=== PATIENT | female | born 1990 | race Caucasian/White ===

== ENCOUNTER 2017-06-09 16:56 | Emergency (ER) | payer OTHER ==
[~2017-06-09] VITALS: Ht 162.6 cm; Wt 73.0 kg
[~2017-06-09 16:56] MED LIST: BACTDS PO; HYDR-3498 PO; IBUP-1542 PO
[2017-06-09 17:01] VITALS: Ht 162.6 cm; Wt 73.0 kg
[2017-06-09] MEDS ORDERED: ACETAMINOPHEN 325 MG TAB PO STA (17:45)
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
[2017-06-09 18:21] LABS: BASOPHILS % 0.3 % (0.0-2.0); EOSINOPHILS % 0.4 % (0.0-7.0); HEMOGLOBIN 13.8 g/dl (12.0-16.0); LYMPHOCYTES # 2.3 10^3/ul (0.8-2.9); LYMPHOCYTES % 20.8 % (15.0-51.0); MEAN CORPUSCULAR HEMOGLOBIN 30.8 pg (29.0-33.0); MEAN CORPUSCULAR HGB CONC 36.3 g/dl (32.0-37.0); MEAN CORPUSCULAR VOLUME 84.8 fl (82.0-101.0); MEAN PLATELET VOLUME 9.7 fl (7.4-10.4); MONOCYTE # 0.5 10^3/ul (0.3-0.9); MONOCYTES % 4.6 % (0.0-11.0); NEUTROPHIL # 8.3 10^3/ul (1.6-7.5); NEUTROPHILS % 73.6 % (39.0-77.0); PLATELET COUNT 287 10^3/UL (140-415); RED BLOOD COUNT 4.48 10^6/ul (4.20-5.40); RED CELL DISTRIBUTION WIDTH 13.1 % (11.5-14.5); WHITE BLOOD COUNT 11.2 10^3/ul (4.8-10.8)
[2017-06-09 18:27] LABS: ADD UMIC YES; UR ASCORBIC ACID NEGATIVE (NEGATIVE); UR BACTERIA FEW /HPF (NONE SEEN); UR BILIRUBIN (Dip) NEGATIVE (NEGATIVE); UR BLOOD (Dip) NEGATIVE (NEGATIVE); UR CLARITY SLIGHTLY CLOUDY (CLEAR); UR COLOR YELLOW (YELLOW); UR GLUCOSE (Dip) NEGATIVE (NEGATIVE); UR KETONES (Dip) TRACE mg/dL (NEGATIVE); UR LEUKOCYTE ESTERASE (Dip) 1+ Leu/ul (NEGATIVE); UR MUCUS MODERATE /HPF (NONE SEEN); UR NITRITE (Dip) POSITIVE (NEGATIVE); UR RBC 3 /HPF (0-5); UR SPECIFIC GRAVITY (Dip) 1.029 (1.003-1.030); UR SQUAMOUS EPITHELIAL CELL FEW /HPF (FEW); UR TOTAL PROTEIN (Dip) NEGATIVE (NEGATIVE); UR UROBILINOGEN (Dip) NEGATIVE (NEGATIVE)
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
[2017-06-09] MEDS ORDERED: NITR-58 PO (20:04)
[2017-06-09 20:10] VITALS: BP 116/67; PULSE 81; RESP 20; TEMP 98.1
== END 2017-06-09 20:11 | disposition home or self-care (01) ==
LOC: FTE 16:56
DX: O23.42 Unspecified infection of urinary tract in pregnancy, second trimester (principal); Z3A.14 14 weeks gestation of pregnancy
CPT/HCPCS: 36415; 76801; 81001; 84702; 85025; Z7502; Z7610

== ENCOUNTER 2017-09-05 21:20 | Emergency (ER) | payer MEDICAID, OTHER ==
[~2017-09-05] VITALS: Ht 162.6 cm; Wt 79.0 kg
[~2017-09-05 21:20] MED LIST changes: +NITR-58 PO
[2017-09-05 21:22] VITALS: Ht 162.6 cm; Wt 79.0 kg
--- NOTE | 2017-09-06 00:25 | ERD ---
ER Documentation Chief Complaint Chief Complaint BIB SELF, CC: COUGH AND LEFT EAR PAIN X 2 DAYS HPI this 24 week femal reports coughing and fever . has appointment with MD in 2 days ROS All systems reviewed and are negative except as per history of present illness. Allergies Allergies: Coded Allergies: Penicillins (Verified Allergy, Unknown, 09/05/17) PMhx/Soc Medical and Surgical Hx: pt denies Medical Hx, pt denies Surgical Hx History of Surgery: No Anesthesia Reaction: No Hx Neurological Disorder: No Hx Respiratory Disorders: No Hx Cardiac Disorders: No Hx Psychiatric Problems: No Hx Miscellaneous Medical Probl: No Hx Alcohol Use: No Hx Substance Use: No Hx Tobacco Use: No Smoking Status: Never smoker Physical Exam Vitals Vital Signs Date Time Temp Pulse Resp B/P Pulse Ox O2 Delivery O2 Flow Rate FiO2 09/05/17 21:22 97.1 85 18 123/60 100 Physical Exam Const: Nourished well-appearing well-hydrated 27-year-old female no acute distress Head: Eyes: ENT: Neck: . Resp: Rises and falls symmetrically clear to auscultation bilaterally, no rales wheezes or rhonchi, no egophony Cardio: S1-S2, no S3-S4 regular rate and rhythm, no murmurs Abd: 's abdomen Skin: Back: Ext: Neur: Awake and alert Psych: Normal Mood and Affect Procedures/MDM This 27-year-old female presents to emergency department for a 2 day history of cough and left-sided otalgia. Patient is 24 weeks , denies any vaginal discharge, abdominal cramping or vaginal bleeding. Patient reports she has a appointment to see her physician in 2 days but came to emergency department today because she felt feverish earlier, patient's temperature is normal in exam room, emergency room course includes history and physical exam unremarkable for evidence of pneumonia, patient will be discharged home with Robitussin cough syrup, instructed to keep appointment with primary physician, return to emergency department for worsening of symptoms, shortness of breath, vaginal bleeding, Patient is stable with no new complaints during ER course, clinically there is no current evidence to suggest meningitis, sepsis, acute abdomen, threatened miscarriage pulmonary embolism or any other emergent condition appearing to require further evaluation or hospitalization. I feel the patient is stable for discharge at this time. I have discussed results, examination findings, the treatment plan with the patient and family present prior to discharge. Indications for emergent reevaluation, side effects of medication were also discussed. All questions were answered. Patient verbalizes understanding and agrees with plan of care. Departure Diagnosis: Primary Impression: URI (upper respiratory infection) URI type: unspecified viral URI Qualified Code: J06.9 - Viral upper respiratory tract infection Condition: Good Patient Instructions: Adult Self-Care for Colds Additional Instructions: Thank you for for coming to [facility] or your care today. Please ask your nurse or provider if you have questions about your care today and do not leave until all your questions have been answered. Please use any medications given as directed and follow-up with your doctor (or the doctor you were referred to) in the next 2-3 days. If you do not have a primary care doctor you may follow up at the [facility] (listed below). You may also use motrin and tylenol as needed for fever and/or pain unless instructed otherwise by your provider or nurse. Indications for more urgent follow-up have been discussed, but you may return to the Emergency Department at ANY time for any worrisome or worsening symptoms. If you have abdominal pain, please know that no test or exam you received is perfect and you should follow up within 8 hours for continued pain. If you had any imaging studies today, such as an X-Ray or CT Scan, these studies will be reviewed later by a radiologist. You will be called if there are important findings that were not identified today, so make sure the contact information you provided at registration is correct. If you received any narcotic pain control medicine today, such as Vicodin, Morphine or Dilaudid, your coordination and judgment may be affected for a number of hours. Please do not drive or operate heavy machinery, and you may want someone to assist you at home. If you were given a prescription for narcotic medication, be aware that it is very addictive- use sparingly and only if necessary. GILBERTO PAYNE Sep 06, 2017 00:25
[2017-09-06] MEDS ORDERED: GUAI-637 PO (01:26)
[2017-09-06 02:10] VITALS: BP 118/58; PULSE 77; RESP 20
== END 2017-09-06 02:11 | disposition home or self-care (01) ==
LOC: FTE 21:20 → MERGE 21:20 → FTE 09-06 02:11
DX: O99.513 Diseases of the respiratory system complicating pregnancy, third trimester (principal); J06.9 Acute upper respiratory infection, unspecified; Z3A.24 24 weeks gestation of pregnancy
CPT/HCPCS: 99283

== ENCOUNTER 2017-09-08 01:30 | Inpatient (IN) | payer OTHER ==
[~2017-09-08] VITALS: Ht 162.6 cm; Wt 80.2 kg
[~2017-09-08 01:30] MED LIST changes: +GUAI-637 PO
[2017-09-08 02:06] VITALS: BP 111/69; PULSE 71; RESP 18
[2017-09-08] MEDS ORDERED: PREN-19 PO (02:10)
[2017-09-08 02:46] LABS: BASOPHILS % 0.1 % (0.0-2.0); EOSINOPHILS # 0.1 10^3/ul (0.0-0.5); EOSINOPHILS % 0.8 % (0.0-7.0); HEMATOCRIT 32.4 % (37.0-47.0); HEMOGLOBIN 10.4 g/dl (12.0-16.0); LYMPHOCYTES # 1.8 10^3/ul (0.8-2.9); LYMPHOCYTES % 15.5 % (15.0-51.0); MEAN CORPUSCULAR HGB CONC 32.1 g/dl (32.0-37.0); MEAN CORPUSCULAR VOLUME 87.1 fl (82.0-101.0); MEAN PLATELET VOLUME 9.7 fl (7.4-10.4); MONOCYTE # 0.8 10^3/ul (0.3-0.9); MONOCYTES % 6.7 % (0.0-11.0); NEUTROPHIL # 8.8 10^3/ul (1.6-7.5); NEUTROPHILS % 76.5 % (39.0-77.0); PLATELET COUNT 266 10^3/UL (140-415); RED BLOOD COUNT 3.72 10^6/ul (4.20-5.40); RED CELL DISTRIBUTION WIDTH 13.2 % (11.5-14.5); WHITE BLOOD COUNT 11.5 10^3/ul (4.8-10.8)
[2017-09-08 02:55] LABS: ADD UMIC YES; UR AMORPHOUS CRYSTAL MODERATE /HPF (NONE SEEN); UR ASCORBIC ACID NEGATIVE (NEGATIVE); UR BACTERIA MANY /HPF (NONE SEEN); UR BILIRUBIN (Dip) NEGATIVE (NEGATIVE); UR BLOOD (Dip) 1+ mg/dL (NEGATIVE); UR CLARITY CLOUDY (CLEAR); UR COLOR YELLOW (YELLOW); UR GLUCOSE (Dip) 1+ mg/dL (NEGATIVE); UR KETONES (Dip) NEGATIVE (NEGATIVE); UR LEUKOCYTE ESTERASE (Dip) 3+ Leu/ul (NEGATIVE); UR MUCUS FEW /HPF (NONE SEEN); UR NITRITE (Dip) POSITIVE (NEGATIVE); UR RBC 0 /HPF (0-5); UR SPECIFIC GRAVITY (Dip) 1.014 (1.003-1.030); UR SQUAMOUS EPITHELIAL CELL FEW /HPF (FEW); UR TOTAL PROTEIN (Dip) 1+ mg/dl (NEGATIVE); UR UROBILINOGEN (Dip) NEGATIVE (NEGATIVE)
--- NOTE | 2017-09-08 02:57 | RADRPT ---
PROCEDURE: ULTRASOUND LIMITED ABDOMEN CLINICAL INDICATION: 27-year-old female with abdominal pain. TECHNIQUE: Multiple sonographic of the right upper quadrant of the abdomen were obtained. The imag es were reviewed on a PACS workstation. COMPARISON: None. FINDINGS: The pancreas is not well visualized secondary to overlying bowel gas. The liver displays normal echogenicity. The liver measures 17.9 cm in length. No evidence of intrah epatic biliary ductal dilatation is seen. The portal and hepatic veins are unremarkable. The gallbladder demonstrates no wall thickening, sludge, nor stones. No pericholecystic fluid is see n. The common bile duct measures 3.3 mm and is not dilated. The right kidney displays normal echogenicity. The right kidney measures 11.2 cm in maximal length. There is mild right-sided hydronephrosis. No free fluid is seen. IMPRESSION: Mild right-sided hydronephrosis .French Lynne MD, MD Date Time Electronically viewed and signed by .French Lynne MD, on 09/08/2017 02:57 .M/
--- NOTE | 2017-09-08 02:58 | RADRPT ---
PROCEDURE: ULTRASOUND BIOPHYSICAL PROFILE CLINICAL INDICATION: 27-year-old female in labor for viability. TECHNIQUE: Multiple sonographic images were obtained in order to perform a biophysical profile The images were reviewed on a PACS workstation. COMPARISON: None. FINDINGS: The cervix appears closed with a length of 4.1 cm measured transvaginally. There is a single viable intrauterine gestation. There is a breech presentation. Cardiac activity is present at 139 beats pe r minute. The placenta is anterior. The results of the biophysical profile are as follows: breathing movement = 2/2 Gross body movement = 2/2 tone = 2/2 Qualitative amniotic fluid volume = 2/2 Amniotic fluid index equals 13.4 cm. This yields a biophysical profile score of 8/8. IMPRESSION: Biophysical profile score is 8/8. .French Lynne MD, Date Time Electronically viewed and signed by .French Lynne MD, on 09/08/2017 02:58 .M/
--- NOTE | 2017-09-08 03:01 | RADRPT ---
PROCEDURE: ULTRASOUND OBSTETRICAL CLINICAL INDICATION: 27-year-old female in labor for size and date determination. TECHNIQUE: Multiple sonographic images of the pelvis were obtained. The images were reviewed on a PACS workstation. COMPARISON: Ultrasound biophysical profile obtained concurrently. FINDINGS: There is a single viable intrauterine gestation. Cardiac activity is present with 141 beats per min tory. There is a breech presentation. Measurements were made in order to determine age. The res ults are as follows: BPD = 6.77 cm, HC = 24.85 cm, AC = 23.75 cm, FL = 5.01 cm. This yields and estimated gestational ag e of approximately 27 weeks 2 days. The estimated date of delivery is December 06, 2017. The EFW = 1086 +/- 163 g (2 lb 6 oz). The GP is 59%. The placenta is anterior. There is no evidence for an abruption or placenta previa. IMPRESSION: 1. Single viable intrauterine gestation of approximately 27 weeks 2 days. The estimated date of de livery is December 16, 2017. 2. The estimated weight is 1086 +/- 163 g (2 lb 6 oz). The GP is 59%. .French Lynne MD, Date Time Electronically viewed and signed by .French Lynne MD, MD on 09/08/2017 03:01 .[place]an
[2017-09-08 03:04] LABS: ALBUMIN 3.6 g/dl (3.3-4.9); ALBUMIN/GLOBULIN RATIO 1.12; BILIRUBIN,INDIRECT 0.1 mg/dl (0-1.1); BILIRUBIN,TOTAL 0.1 mg/dl (0.2-1.3); CALCIUM 8.6 mg/dl (8.4-10.2); CREATININE 0.57 mg/dl (0.44-1.00); TOTAL PROTEIN 6.8 g/dl (6.1-8.1)
[2017-09-08] MEDS ORDERED: SOD CHLORIDE 0.9% 1,000 ML IV ONE (03:30)
[2017-09-08] MEDS ORDERED: AL HYDROX/MG HYDROX/SIMETH 30 ML CUP PO PRN (03:30)
--- NOTE | 2017-09-08 03:35 | HP ---
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 Blood Type: Unknown Rubella: unknown RPR/VDRL: Unknown GBS Status: Unknown HBsAG: Unknown OB Admission Exam Vital Signs Vital Signs Vital Signs Date Time Temp Pulse Resp B/P Pulse Ox O2 Delivery O2 Flow Rate FiO2 09/08/17 02:06 97.8 71 18 111/69 Room Air Physical Exam HEENT: WNL Heart: Rhythm Normal Lungs: Clear, Equal Abdomen: WNL Extremities: Normal Reflexes: Normal Cervical Dilatation: other Effacement: Other Station: Other Membranes: Intact Amniotic Fluid: Unevaluable Heart Rate: 120's Accelerations: Accelerations Present Decelerations: No Decelerations Varibility: Moderate Last 72 hours Lab Results CBC & BMP 09/08/17 02:35 Liver Function Test 09/08/17 02:35 Alanine Aminotransferase (ALT/SGPT) 24 Albumin 3.6 Alkaline Phosphatase 114 Aspartate Amino Transf (AST/SGOT) 12 L Direct Bilirubin 0.00 Total Protein 6.8 OB Assessment/Plan Other 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
[2017-09-08] MEDS ORDERED: GUAIFENESIN 20 MG/ML 5ML CUP PO PRN (04:00)
[2017-09-08] MEDS ORDERED: ONDANSETRON 4 MG INJ IV PRN (04:00)
--- NOTE | 2017-09-08 04:00 | TRIAGE ---
OB Triage Datetime Report Generated by CPN: 09/08/2017 03:59 Datetime: 09/08/2017 02:15 Stage of : OB Triage Datetime: 09/08/2017 02:02 Stage of : OB Triage Monitor Mode: External Pattern: Normal: <= 5 Contractions in 10 Minutes Resting Tone [place]: Relaxed Heart Rate FHR Baseline Rate: 130 Monitor Mode: External US Comments: Baby audibly very active and difficult to monitor Datetime: 09/08/2017 01:45 Time of Arrival: 09/08/2017 01:25 EGA: 27.0 Arrived By: Wheelchair Arrived From: Home Chief Complaint: hx c/s x1 c/o Movement: Present Contractions: Regular Time Contractions Began: 09/07/2017 09:00 Contractions: Q5 Rupture of Membranes: Denies Vaginal Bleeding: None Vaginal Discharge: Denies Recent Sexual Intercouse: Denies Abdominal Trauma: Not Applicable Patient Complaints: Contractions Additional Patient Complaints: Pt states she was seen inER 2 days ago for cough/flu and sent home with ibuprofen Time Provider Notified: 09/08/2017 02:15 Provider Notified: Dr Obrien Initial Plan: EFM,CBC,CMP,UA,AMYLASE,LIPASE,CVL,BPP,EFW,LIMITED ABD Datetime: 09/08/2017 01:39 Stage of : OB Triage Maternal Assessment Level of Consciousness: Fully Conscious Headache: Denies Blurred Vision: No Respiratory Effort: Unlabored Nausea/Vomiting: Denies RUQ Epigastric Pain: Denies Facial Edema: None Labor Evaluation Frequency: placed Monitor Mode: External Resting Tone [place]: Relaxed Heart Rate FHR Baseline Rate: 130 Monitor Mode: External US Pain Assessment Pain Scale: 10 Pain Presence: Intermittent Pain Type: Cramping; Pressure Pain Location: Abdomen; Perineum
[2017-09-08] MEDS: ACETAMINOPHEN 1000MG/100ML IV 100 ML IVPB PRN ×2 (04:40→13:50)
[2017-09-08] MEDS: CEFTRIAXONE 1 GM/50 ML (PMX) 50 ML IVPB SCH (05:03)
[2017-09-08] MEDS: SOD CHLORIDE 0.9% 1,000 ML IV SCH ×2 (05:27→13:24)
[2017-09-08] MEDS: FERROUS SULFATE (EC) 325 MG TAB PO SCH (09:46)
[2017-09-08] MEDS: PRENATAL VITAMIN PO SCH (09:46)
[2017-09-09] MEDS: SOD CHLORIDE 0.9% 1,000 ML IV SCH ×3 (01:10→14:44)
[2017-09-09] MEDS: CEFTRIAXONE 1 GM/50 ML (PMX) 50 ML IVPB SCH (05:11)
--- NOTE | 2017-09-09 08:17 | RADRPT ---
PROCEDURE: CERVICAL LENGTH ULTRASOUND CLINICAL INDICATION: Contractions at 27 weeks gestational age. TECHNIQUE: Trans-vaginal imaging of the cervical canal was performed utilizing teague-scale imaging. Sagittal and transverse images were obtained. Trans-abdominal images were also obtained. The viviane ges were reviewed on a PACS workstation. COMPARISON: None. FINDINGS: There is a single live intrauterine . heart rate is 137 beats per minute. Position is transverse with head to maternal right and placenta is fundal grade 1. There is no place nta previa. The cervix is closed with a length of 3.6 cm. IMPRESSION: 1. Cervical length is 3.6 cm. RPTAT: QQ .Javan Adrian MD, Date Time Electronically viewed and signed by .Javan Adrian MD, on 09/09/2017 08:16 .R/
[2017-09-09] MEDS: PRENATAL VITAMIN PO SCH (09:11)
[2017-09-09] MEDS: FERROUS SULFATE (EC) 325 MG TAB PO SCH (09:11)
[2017-09-09 14:16] LABS: BASOPHILS % 0.3 % (0.0-2.0); EOSINOPHILS # 0.1 10^3/ul (0.0-0.5); EOSINOPHILS % 0.7 % (0.0-7.0); HEMATOCRIT 30.5 % (37.0-47.0); LYMPHOCYTES # 1.7 10^3/ul (0.8-2.9); LYMPHOCYTES % 19.4 % (15.0-51.0); MEAN CORPUSCULAR HEMOGLOBIN 28.7 pg (29.0-33.0); MEAN CORPUSCULAR HGB CONC 32.8 g/dl (32.0-37.0); MEAN CORPUSCULAR VOLUME 87.6 fl (82.0-101.0); MONOCYTE # 0.6 10^3/ul (0.3-0.9); MONOCYTES % 6.2 % (0.0-11.0); NEUTROPHIL # 6.5 10^3/ul (1.6-7.5); NEUTROPHILS % 73.2 % (39.0-77.0); PLATELET COUNT 276 10^3/UL (140-415); RED BLOOD COUNT 3.48 10^6/ul (4.20-5.40); RED CELL DISTRIBUTION WIDTH 13.4 % (11.5-14.5); WHITE BLOOD COUNT 8.9 10^3/ul (4.8-10.8)
[2017-09-09] MEDS: ACETAMINOPHEN 1000MG/100ML IV 100 ML IVPB PRN (14:30)
--- NOTE | 2017-09-09 17:09 | PN ---
Date/Time of Note Date/Time of Note DATE: 09/09/17 TIME: 17:06 OB Subjective Subjective Subjective NO major complaints OB Objective Objective Objective VSS P/E: Normal no CVA tenderness OB Assessment/Plan Other Assessment: 26 weeks gestation pyelonephritis resolved Other plan: will D/C home OCTAVIO OSBORNE MD Sep 09, 2017 17:09
--- NOTE | 2017-09-09 17:11 | DS ---
Date/Time of Note Date/Time of Note DATE: 09/09/17 TIME: 17:09 Obstetrical Discharge Record Final Diagnosis Final Diagnosis: not delivered Other Final Diagnosis pyelonephritis at 26 weeks: resolved Complications Infection (pyelonephritis ) Condition on Discharge Physical Assessment Voiding: Yes Bowel Movement: Yes Breast: Soft, non-tender, Filling Fundus: Other ( ) Abdomen and Incision: gravid Episiotomy: NA Calf Tenderness: No Patient Condition: Good OCTAVIO OSBORNE MD Sep 09, 2017 17:10
--- NOTE | 2017-09-09 17:12 | PD.PPDC ---
[employer] Discharge Instruction Provider Information Physician Information 27 y/o female with pyelonephritis at 26 weeks Diagnosis Final Diagnosis: S/P puelonephritis Condition Patient Condition: Good Diet Diet: Resume Regular Diet Activity/Restrictions Activity: May Shower Follow-up Follow-up with Physician: 3, 4, Day/Days Return to clinic for Comment: refer back to ON triage for the same symptoms OCTAVIO OSBORNE MD Sep 09, 2017 17:12
== END 2017-09-09 18:02 | disposition home or self-care (01) | DRG 781 ==
LOC: OBT 01:30 → L-D 01:30 → OBG 03:20 → OBT 03:20
PROVIDERS: ADMIT Obstetrics & Gynecology; ATTEND Obstetrics & Gynecology
DX: O23.02 Infections of kidney in pregnancy, second trimester (principal); Z3A.27 27 weeks gestation of pregnancy
CPT/HCPCS: 76705; 76815; 76817; 76818; 80053; 81001; 82150; 83690; 85025; 87086; G0463; J0131; J0696; J7030

== ENCOUNTER 2017-10-03 09:22 | Emergency (ER) | payer OTHER ==
[~2017-10-03] VITALS: Wt 81.0 kg
[~2017-10-03 09:22] MED LIST changes: -BACTDS PO; -HYDR-3498 PO; -NITR-58 PO; +PREN-19 PO
[2017-10-03] MEDS ORDERED: OSLT75C PO (10:51)
[2017-10-03] MEDS ORDERED: ACET650S9 PR (10:51)
[2017-10-03] MEDS ORDERED: ALBU18HF INHALATION (10:51)
--- NOTE | 2017-10-03 11:00 | ERD ---
ER Documentation Chief Complaint Chief Complaint COUGH, SOB, HX OF BRONCHITIS, PT 31 WKS PG, NO CRAMPING, NO BLEEDING HPI 27-year-old female who is approximately 31 weeks , presents to the emergency department for complaints of cough and congestion since this morning. Patient states she was diagnosed with bronchitis 1 year ago and has an albuterol inhaler but was unsure if she is able to use it for her symptoms. 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 She denies fever, chills, headache, nausea , vomiting, abdominal pain or diarrhea. She denies any vaginal bleeding or discharge. She denies pelvic cramping. ROS All systems reviewed and are negative except as per history of present illness. Medications Home Meds Active Scripts Oseltamivir Phosphate* (Tamiflu*) 75 Mg Capsule, 75 MG PO BID for 5 Days, CAP Prov:DANAE BRINK PA-C 10/03/17 Acetaminophen* (Acephen*) 650 Mg Supp.rect, 650 MG [place] Q4H Y for PAIN AND OR ELEVATED TEMP for 5 Days, SUPP.RECT Prov:DANAE BRINK PA-C 10/03/17 Albuterol Sulfate* (Ventolin HFA*) 18 Gm Hfa.aer.ad, 2 PUFF INHALATION Q4H, #1 INHALER Prov:DANAE BRINK PA-C 10/03/17 Guaifenesin* (Robitussin*) 100 Mg/5 Ml Syrup, 100 MG PO Q4H Y for COUGH for 3 Days, #100 ML Prov:GILBERTO PAYNE 09/06/17 Ibuprofen* (Motrin*) 600 Mg Tab, 600 MG PO Q6H Y for PAIN AND OR ELEVATED TEMP, #30 TAB Prov:RICCI DIAZ NP 06/07/16 Reported Medications Vit #76/Iron,Carb/FA (Prenatabs Rx Tablet) 1 Each Tablet, 1 EACH PO DAILY, TAB 09/08/17 Allergies Allergies: Coded Allergies: Penicillins (Verified Allergy, Intermediate, 09/09/17) PMhx/Soc Medical and Surgical Hx: pt denies Medical Hx History of Surgery: Yes () Anesthesia Reaction: No Hx Neurological Disorder: No Hx Respiratory Disorders: Yes (bronchitis) Hx Cardiac Disorders: No Hx Psychiatric Problems: No Hx Miscellaneous Medical Probl: No Hx Alcohol Use: No Hx Substance Use: No Hx Tobacco Use: No Smoking Status: Never smoker Physical Exam Vitals Vital Signs Date Time Temp Pulse Resp B/P Pulse Ox O2 Delivery O2 Flow Rate FiO2 10/03/17 09:25 97.5 103 18 120/74 100 Physical Exam Const: Well-developed, well-nourished, in no acute distress Head: Atraumatic Eyes: Normal Conjunctiva ENT: Normal External Ears, Nose and Mouth.Posterior pharynx without swelling or erythema. Neck: Full range of motion..~ No meningismus. Resp: Mild inspiratory wheezing at the right upper lobe. No crackles or rhonchi. Cardio: Regular rate and rhythm, no murmurs Abd: Soft, non tender, non distended. Normal bowel sounds Skin: No petechiae or rashes Back: No midline or flank tenderness Ext: No cyanosis, or edema Neur: Awake and alert Psych: Normal Mood and Affect Procedures/MDM This is a 27-year-old otherwise healthy female who is a approximately 31 weeks who presents with cough and congestion since this morning. Patient states her symptoms are exacerbated while working outside in the smoke. She notes a history of bronchitis for which she was prescribed albuterol. Vital signs within normal limits upon arrival. Patient without evidence of respiratory distress and is moving air well. Physical exam with evidence of mild right upper lung wheezing. The patient's clinical presentation is consistent with cough and congestion likely the result of an acute viral syndrome versus respiratory irritant. The patient does not exhibit any clinical signs or symptoms concerning for serious bacterial infection or systemic illness. Based on history and clinical exam findings the patient does not appear to have evidence of pneumonia, strep pharyngitis, urinary tract infection, bacteremia, sepsis, or meningitis. Patient denied abdominal pain, cramping or vaginal bleeding. For these reasons I do not believe it is necessary to obtain laboratory testing or diagnostic imaging. I believe it would be appropriate for symptom control, and close outpatient primary care follow-up. I have recommended a humidifier, Tylenol, and albuterol inhaler. We will also be prescribing Tamiflu patient is higher risk and presents with flulike symptoms which began this morning. I discouraged the patient on taking cough suppressant medication due to its effects during . Based on patient's history of present illness and physical examination the decision was made to discharge. The patient was re-evaluated after ED treatment and stabilizing measures, and symptoms have improved. There is no evidence of life threatening injuries or illnesses at this time. Patient agrees with plan. On re-examination, patient resting in no distress, stable vital signs, reports feeling better and safe for discharge with outpatient follow up with PMD in 1-2 days. Patient given return precautions. Departure Diagnosis: Primary Impression: URI (upper respiratory infection) URI type: unspecified viral URI Qualified Code: J06.9 - Viral upper respiratory tract infection Additional Impressions: Cough Wheezing Condition: Good Patient Instructions: Uri, Viral W/ Wheezing (Adult) Additional Instructions: Call your primary care doctor TOMORROW for an appointment during the next 1-2 days.See the doctor sooner or return here if your condition worsens before your appointment time. DANAE BRINK PA-C Oct 03, 2017 11:00
== END 2017-10-03 11:02 | disposition home or self-care (01) ==
LOC: FTE 09:22
DX: O99.511 Diseases of the respiratory system complicating pregnancy, first trimester (principal); J06.9 Acute upper respiratory infection, unspecified; Z3A.31 31 weeks gestation of pregnancy
CPT/HCPCS: 99284

== ENCOUNTER 2017-10-23 19:00 | Emergency (ER) | payer OTHER ==
[~2017-10-23] VITALS: Ht 162.6 cm; Wt 83.2 kg
[~2017-10-23 19:00] MED LIST changes: +ACET650S9 PR; +ALBU18HF INHALATION; +OSLT75C PO
[2017-10-23 20:21] VITALS: Ht 162.6 cm; Wt 83.2 kg
[2017-10-23] MEDS ORDERED: ACETAMINOPHEN 500 MG TAB PO STA (21:20)
[2017-10-23] MEDS ORDERED: HYDROCODONE/APAP (5/325) TAB PO ONE (21:30)
[2017-10-23] MEDS ORDERED: TYL500 PO (23:16)
--- NOTE | 2017-10-23 23:21 | ERD ---
ER Documentation Chief Complaint Chief Complaint fever, cough, tino ear ache, dizzy.32 weeks HPI This 27-year-old female comes emergency room complaining of fever cough bilateral earache and lightheadedness. She is 32 weeks has no abdominal pain or vaginal symptoms. had similar symptoms which have now resolved and she also brings in her son who has the same symptoms that she does currently. She has had fever and chills. No dysuria. ROS All systems reviewed and are negative except as per history of present illness. Medications Home Meds Active Scripts Acetaminophen* (Tylenol*) 500 Mg Tab, 500 MG PO Q5H Y for PAIN AND OR ELEVATED TEMP, #20 TAB Prov:WESLEY TIRADO DO 10/23/17 Oseltamivir Phosphate* (Tamiflu*) 75 Mg Capsule, 75 MG PO BID for 5 Days, CAP Prov:DANAE BRINK PA-C 10/03/17 Acetaminophen* (Acephen*) 650 Mg Supp.rect, 650 MG [place] Q4H Y for PAIN AND OR ELEVATED TEMP for 5 Days, SUPP.RECT Prov:DANAE BRINK PA-C 10/03/17 Albuterol Sulfate* (Ventolin HFA*) 18 Gm Hfa.aer.ad, 2 PUFF INHALATION Q4H, #1 INHALER Prov:DANAE BRINK PA-C 10/03/17 Guaifenesin* (Robitussin*) 100 Mg/5 Ml Syrup, 100 MG PO Q4H Y for COUGH for 3 Days, #100 ML Prov:GILBERTO PAYNE 09/06/17 Ibuprofen* (Motrin*) 600 Mg Tab, 600 MG PO Q6H Y for PAIN AND OR ELEVATED TEMP, #30 TAB Prov:RICCI DIAZ NP 06/07/16 Reported Medications Vit #76/Iron,Carb/FA (Prenatabs Rx Tablet) 1 Each Tablet, 1 EACH PO DAILY, TAB 09/08/17 Allergies Allergies: Coded Allergies: Penicillins (Verified Allergy, Intermediate, 10/03/17) PMhx/Soc History of Surgery: Yes () Anesthesia Reaction: No Hx Neurological Disorder: No Hx Respiratory Disorders: Yes (bronchitis) Hx Cardiac Disorders: No Hx Psychiatric Problems: No Hx Miscellaneous Medical Probl: No Hx Alcohol Use: No Hx Substance Use: No Hx Tobacco Use: No Smoking Status: Never smoker Physical Exam Vitals Vital Signs Date Time Temp Pulse Resp B/P Pulse Ox O2 Delivery O2 Flow Rate FiO2 10/23/17 20:21 101.2 130 21 109/62 98 Physical Exam Const: [] No distress Resp: Clear to auscultation bilaterally Cardio: Regular rate and rhythm, no murmurs Abd: Soft, non tender, obese, gravid. Normal bowel sounds Ext: No cyanosis, or edema Neur: Awake and alert and oriented 3, no focal deficits Results 24 hrs Current Medications Medications (Trade) Dose Ordered Sig/Connie Route PRN Reason Start Time Stop Time Status Last Admin Dose Admin Acetaminophen/ Hydrocodone Bitart (Cambria (5/325)) 1 tab ONCE ONCE PO 10/23/17 21:30 10/23/17 21:31 DC 10/23/17 21:54 Acetaminophen (Tylenol Tab) 500 mg ONCE STAT PO 10/23/17 21:20 10/23/17 21:22 DC 10/23/17 21:54 Procedures/MDM Likely viral upper respiratory infection in female. had similar symptoms and child has similar symptoms. Believe is unlikely there is a bacterial respiratory infection traveling down between all of them. 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 Is given a single Tylenol and a Cambria in the emergency room after which she felt much better. Admit to discharge her with Tylenol and primary care follow-up and strict return precautions. Departure Diagnosis: Primary Impression: Upper respiratory infection Condition: Stable Patient Instructions: Uri, Viral, No Abx (Adult) Additional Instructions: Call your primary care doctor TOMORROW for an appointment during the next 2-3 days.See the doctor sooner or return here if your condition worsens before your appointment time. WESLEY TIRADO DO Oct 23, 2017 23:21
[2017-10-23 23:29] VITALS: BP 115/85; PULSE 78; RESP 18; TEMP 98.6
== END 2017-10-23 23:30 | disposition home or self-care (01) ==
LOC: FTE 19:00
DX: O99.513 Diseases of the respiratory system complicating pregnancy, third trimester (principal); J06.9 Acute upper respiratory infection, unspecified; Z3A.32 32 weeks gestation of pregnancy
CPT/HCPCS: Z7502; Z7610; 99283

== ENCOUNTER 2017-10-26 12:10 | Outpatient (CLI) | payer OTHER ==
[~2017-10-26] VITALS: Ht 162.6 cm; Wt 83.0 kg
[~2017-10-26 12:10] MED LIST changes: +TYL500 PO
[2017-10-26 12:31] VITALS: BP 111/64; PULSE 99; Ht 162.6 cm; Wt 83.0 kg
[2017-10-26 13:40] LABS: BASOPHILS % 0.4 % (0.0-2.0); EOSINOPHILS % 0.6 % (0.0-7.0); HEMATOCRIT 27.9 % (37.0-47.0); HEMOGLOBIN 8.9 g/dl (12.0-16.0); LYMPHOCYTES # 1.4 10^3/ul (0.8-2.9); LYMPHOCYTES % 27.1 % (15.0-51.0); MEAN CORPUSCULAR HEMOGLOBIN 25.9 pg (29.0-33.0); MEAN CORPUSCULAR HGB CONC 31.9 g/dl (32.0-37.0); MEAN CORPUSCULAR VOLUME 81.3 fl (82.0-101.0); MEAN PLATELET VOLUME 10.3 fl (7.4-10.4); MONOCYTE # 0.3 10^3/ul (0.3-0.9); NEUTROPHIL # 3.4 10^3/ul (1.6-7.5); NEUTROPHILS % 65.5 % (39.0-77.0); PLATELET COUNT 241 10^3/UL (140-415); RED BLOOD COUNT 3.43 10^6/ul (4.20-5.40); RED CELL DISTRIBUTION WIDTH 14.3 % (11.5-14.5); WHITE BLOOD COUNT 5.2 10^3/ul (4.8-10.8)
[2017-10-26 13:43] LABS: ADD UMIC NO; UR ASCORBIC ACID NEGATIVE (NEGATIVE); UR BILIRUBIN (Dip) NEGATIVE (NEGATIVE); UR BLOOD (Dip) NEGATIVE (NEGATIVE); UR CLARITY CLEAR (CLEAR); UR COLOR YELLOW (YELLOW); UR GLUCOSE (Dip) NEGATIVE (NEGATIVE); UR KETONES (Dip) NEGATIVE (NEGATIVE); UR LEUKOCYTE ESTERASE (Dip) NEGATIVE Leu/ul (NEGATIVE); UR NITRITE (Dip) NEGATIVE (NEGATIVE); UR SPECIFIC GRAVITY (Dip) 1.015 (1.003-1.030); UR TOTAL PROTEIN (Dip) NEGATIVE (NEGATIVE); UR UROBILINOGEN (Dip) NEGATIVE (NEGATIVE)
--- NOTE | 2017-10-26 14:44 | RADRPT ---
PROCEDURE: US cervix CLINICAL INDICATION: labor TECHNIQUE: Limited OB ultrasound was performed to evaluate the cervix COMPARISON: No prior studies are available for comparison. FINDINGS: There is a single live intrauterine . Normal cardiac activity is identified at a rat e of 138 beats per minute. presentation is cephalic. Placenta is anterior grade 1 to II The endovaginal cervical length is 3.66 cm. Cervix is closed. There is no funneling or dilatation. IMPRESSION: The cervix is closed and measures 3.66 cm in length RPTAT: HH .Macho Campbell MD, Date Time Electronically viewed and signed by .Macho Campbell MD, on 10/26/2017 14:44 .W/
--- NOTE | 2017-10-26 18:02 | PN ---
Triage Information Date/Time 10/26/2017 Reason for visit: Uterine contractions (Complaining of uterine contractions since a.m. of 1228, denies rupture of membranes vaginal bleed) Weeks of Gestation 33 weeks /Para 2 para 1 Diabetes: none Hypertention: none Additional information Patient has had cold syndrome and cough for period of 2 3 days. Denies fever or other symptoms associated Objective Vital Signs Date Time Temp Pulse Resp B/P Pulse Ox O2 Delivery O2 Flow Rate FiO2 10/26/17 12:31 97.8 99 111/64 Heart Rate: 140's Heart Rate Comments Reactive Contractions: None (On electronic monitoring no uterine contractions seen ) Exam Cervical exam was reported to be long and closed Results/Medications Result Diagram: 10/26/17 1322 Results 24 hrs Laboratory Tests Test 10/26/17 12:31 10/26/17 13:22 Urine Color YELLOW Urine Clarity CLEAR Urine pH 6.0 Urine Specific [place] 1.015 Urine Ketones NEGATIVE Urine Nitrite NEGATIVE Urine Bilirubin NEGATIVE Urine Urobilinogen NEGATIVE Urine Leukocyte Esterase NEGATIVE Urine Hemoglobin NEGATIVE Urine Glucose NEGATIVE Urine Total Protein NEGATIVE White Blood Count 5.2 # Red Blood Count 3.43 L Hemoglobin 8.9 L Hematocrit 27.9 L Mean Corpuscular Volume 81.3 L Mean Corpuscular Hemoglobin 25.9 L Mean Corpuscular Hemoglobin Concent 31.9 L Red Cell Distribution Width 14.3 Platelet Count 241 Mean Platelet Volume 10.3 Neutrophils % 65.5 Lymphocytes % 27.1 Monocytes % 6.0 Eosinophils % 0.6 Basophils % 0.4 Nucleated Red Blood Cells % 0.0 Neutrophils # 3.4 Lymphocytes # 1.4 Monocytes # 0.3 Eosinophils # 0.0 Basophils # 0.0 Nucleated Red Blood Cells # 0.0 Imaging Results The cervix is closed and measures 3.66 cm in length Disposition: Discharge Assessment/Plan labor ruled out We will follow as outpatient OCTAVIO OSBORNE MD Oct 26, 2017 18:02
--- NOTE | 2017-10-26 18:47 | TRIAGE ---
OB Triage Datetime Report Generated by CPN: 10/26/2017 18:46 Datetime: 10/26/2017 17:53 Stage of : OB Triage Datetime: 10/26/2017 17:41 Labor Evaluation Frequency: 0 Monitor Mode: External Resting Tone Pavo: Relaxed Heart Rate FHR Baseline Rate: 135 Monitor Mode: External US Variability: Moderate 6-25 bpm Accelerations: 10X10 Decelerations: None Category: Category I Pain Assessment Pain Scale: 0 Pain Presence: None/Denies Pain Type: N/A Pain Goal: 3 Pain Relief Measures: Comfort Measures Datetime: 10/26/2017 17:40 Heart Rate FHR Baseline Rate: 135 Variability: Moderate 6-25 bpm Datetime: 10/26/2017 16:47 Labor Evaluation Frequency: 0 Monitor Mode: External Pattern: Normal: <= 5 Contractions in 10 Minutes Resting Tone Pavo: Relaxed Heart Rate FHR Baseline Rate: 125 Monitor Mode: External US Variability: Moderate 6-25 bpm Accelerations: 10X10 Decelerations: None Category: Category I Pain Assessment Pain Scale: 0 Pain Presence: None/Denies Pain Type: N/A Pain Goal: 3 Pain Relief Measures: Comfort Measures Datetime: 10/26/2017 15:44 Labor Evaluation Frequency: 0 Monitor Mode: External Resting Tone Pavo: Relaxed Heart Rate FHR Baseline Rate: 135 Monitor Mode: External US Variability: Moderate 6-25 bpm Accelerations: 10X10 Decelerations: None Category: Category I Pain Assessment Pain Scale: 0 Pain Presence: None/Denies Pain Type: N/A Pain Goal: 3 Pain Relief Measures: Comfort Measures Datetime: 10/26/2017 15:38 Vaginal Exam Dilatation (cms): 0.0 Station: -2 Exam By: S REBECA Vaginal Bleeding: None Cervix, Consistency: Soft Cervix, Position: Posterior Presentation 'A': Cephalic Datetime: 10/26/2017 14:29 Labor Evaluation Frequency: 0 Monitor Mode: External Resting Tone Pavo: Relaxed Heart Rate FHR Baseline Rate: 135 Monitor Mode: External US Variability: Moderate 6-25 bpm Accelerations: 10X10 Decelerations: None Category: Category I Pain Assessment Pain Scale: 0 Pain Presence: None/Denies Pain Type: N/A Pain Goal: 3 Pain Relief Measures: Comfort Measures Datetime: 10/26/2017 13:29 Labor Evaluation Frequency: 0 Monitor Mode: External Resting Tone Pavo: Relaxed Heart Rate FHR Baseline Rate: 135 Monitor Mode: External US Variability: Moderate 6-25 bpm Accelerations: 10X10 Decelerations: None Category: Category I Pain Assessment Pain Scale: 0 Pain Presence: None/Denies Pain Type: N/A Pain Goal: 3 Pain Relief Measures: Comfort Measures Datetime: 10/26/2017 13:03 Stage of : OB Triage Datetime: 10/26/2017 12:42 Stage of : OB Triage Datetime: 10/26/2017 12:28 Stage of : OB Triage Assessment Type: Triage Maternal Assessment Level of Consciousness: Fully Conscious DTR's/Clonus: DTRs 2+; No Clonus Headache: Denies Blurred Vision: No Respiratory Effort: Unlabored; Regular Rhythm; Equal Expansion Breath Sounds, Left: Clear and Equal Breath Sounds, Right: Clear and Equal Nausea/Vomiting: Denies RUQ Epigastric Pain: Denies Facial Edema: None Temperature Route: Axillary Fall Risk Assessment History of Falling: (0) No Secondary Diagnosis: (0) No Ambulatory Aid: (0) Bedrest/Nurse Assist IV Therapy: (0) No Gait: (0) Normal/Bedrest/Immobile Mental Status: (0) Oriented to Own Ability Fall Score: 0 Fall Risk Score Definition: No Risk: No action required Labor Evaluation Frequency: 0 Monitor Mode: External Pattern: Normal: <= 5 Contractions in 10 Minutes Resting Tone Pavo: Relaxed Heart Rate FHR Baseline Rate: 135 Monitor Mode: External US Variability: Moderate 6-25 bpm Accelerations: 10X10 Decelerations: None Category: Category I Pain Assessment Pain Scale: 5 Pain Presence: None/Denies Pain Type: N/A Pain Location: Abdomen Pain Goal: 3 Pain Relief Measures: Comfort Measures Datetime: 10/26/2017 12:26 Time of Arrival: 10/26/2017 12:05 EGA: 33.6 Arrived By: Ambulatory Arrived From: Office Chief Complaint: SENT FROM [facility] TO [facility]/O PTL. DENIES BLEEDING, OR LEAKING. STATES SOME FREQUENCY/B URNING ON URINATION YESTERDAY Movement: Present Contractions: Occasional Rupture of Membranes: Ruptured Vaginal Bleeding: None Vaginal Discharge: Denies Recent Sexual Intercouse: Denies Abdominal Trauma: Not Applicable Patient Complaints: Cramping Time Provider Notified: 10/26/2017 13:03 Provider Notified: SAMY Initial Plan: MONITOR, U/A C_S, CL, CBC, VE Datetime: 09/09/2017 17:47 Labor Evaluation Frequency: 0 Monitor Mode: External Duration (sec)2399: 0 Resting Tone Pavo: Relaxed Comments: D/c instructions given to pt and FOB, Pt verbalized understanding. All questions answer ed. Comments: IV discontinue, IV catheter intact, IV site with no complications. Pt tolerated procedur e. Pain Assessment Pain Scale: 0 Pain Presence: None/Denies Pain Type: N/A Pain Goal: 3 Datetime: 09/09/2017 17:24 Comments: Dr. Samy at bedside to assess pt and give d/c instruction to pt. All questions answer ed by MD Datetime: 09/09/2017 17:01 Labor Evaluation Frequency: x1 Monitor Mode: External Duration (sec)2399: 40 Quality: Mild Pattern: Normal: <= 5 Contractions in 10 Minutes Resting Tone Pavo: Relaxed Datetime: 09/09/2017 16:14 Stage of : Labor Temperature Route: Oral Datetime: 09/09/2017 16:02 Labor Evaluation Frequency: X2 Monitor Mode: External Duration (sec)2399: 40-50 Quality: Mild Pattern: Normal: <= 5 Contractions in 10 Minutes Resting Tone Pavo: Relaxed Pain Assessment Pain Scale: 0 Pain Presence: None/Denies Pain Type: N/A Pain Goal: 3 Datetime: 09/09/2017 15:30 Pain Assessment Pain Scale: 0 Pain Presence: None/Denies Pain Type: N/A Pain Goal: 3 Datetime: 09/09/2017 15:00 Labor Evaluation Frequency: X2 Monitor Mode: External Duration (sec)2399: 40-50 Quality: Mild Pattern: Normal: <= 5 Contractions in 10 Minutes Resting Tone Pavo: Relaxed Pain Assessment Pain Scale: 0 Pain Presence: None/Denies Pain Type: N/A Pain Goal: 3 Datetime: 09/09/2017 14:17 Comments: Pt c/o headache 4/10, Tylenol IV (as order was requested to the pharmacy) Datetime: 09/09/2017 14:03 Labor Evaluation Frequency: 0 Monitor Mode: External Duration (sec)2399: 0 Resting Tone Pavo: Relaxed Heart Rate FHR Baseline Rate: 135 Monitor Mode: Internal Scalp Electrode FHR Baseline Changes: No Baseline Change Variability: Moderate 6-25 bpm Accelerations: 10X10 Decelerations: None Category: Category I Datetime: 09/09/2017 13:01 Labor Evaluation Frequency: x2 Monitor Mode: External Duration (sec)2399: 50-60 Quality: Mild Pattern: Normal: <= 5 Contractions in 10 Minutes Resting Tone Pavo: Relaxed Pain Assessment Pain Scale: 0 Pain Presence: None/Denies Pain Type: N/A Pain Goal: 3 Datetime: 09/09/2017 11:51 Labor Evaluation Frequency: 2-13 Monitor Mode: External Duration (sec)2399: 30-50 Resting Tone Pavo: Relaxed Pain Assessment Pain Scale: 0 Pain Presence: None/Denies Pain Type: N/A Pain Goal: 3 Datetime: 09/09/2017 11:49 Stage of : Antepartum Temperature Route: Oral Datetime: 09/09/2017 10:57 Labor Evaluation Frequency: X3 Monitor Mode: External Duration (sec)2399: 40-50 Quality: Mild Pattern: Normal: <= 5 Contractions in 10 Minutes Resting Tone Pavo: Relaxed Pain Assessment Pain Scale: 0 Pain Presence: None/Denies Pain Type: N/A Pain Goal: 3 Datetime: 09/09/2017 10:00 Labor Evaluation Frequency: X4 Monitor Mode: External Duration (sec)2399: 40-50 Quality: Mild Pattern: Normal: <= 5 Contractions in 10 Minutes Resting Tone Pavo: Relaxed Pain Assessment Pain Scale: 0 Pain Presence: None/Denies Pain Type: N/A Pain Goal: 3 Datetime: 09/09/2017 09:00 Labor Evaluation Frequency: X3 Monitor Mode: External Duration (sec)2399: 40-60 Quality: Mild Pattern: Normal: <= 5 Contractions in 10 Minutes Resting Tone Pavo: Relaxed Datetime: 09/09/2017 08:08 Comments: u/s in progress Datetime: 09/09/2017 08:04 Assessment Type: Ongoing Assessment Maternal Assessment Level of Consciousness: Fully Conscious DTR's/Clonus: DTRs 2+; No Clonus Headache: Denies Blurred Vision: No Respiratory Effort: Unlabored; Regular Rhythm; Equal Expansion Breath Sounds, Left: Clear and Equal Breath Sounds, Right: Clear and Equal Nausea/Vomiting: Denies RUQ Epigastric Pain: Denies Lower Extremities Edema: None Upper Extremities Edema: None Facial Edema: None Fall Risk Assessment History of Falling: (0) No Secondary Diagnosis: (0) No Ambulatory Aid: (0) Bedrest/Nurse Assist Gait: (0) Normal/Bedrest/Immobile Mental Status: (0) Oriented to Own Ability Datetime: 09/09/2017 08:01 Headache: Denies Blurred Vision: No RUQ Epigastric Pain: Denies Facial Edema: None Labor Evaluation Frequency: 0 Monitor Mode: External Duration (sec)2399: 3 Resting Tone Pavo: Relaxed Pain Presence: None/Denies Pain Type: N/A Membrane Status: Intact Datetime: 09/09/2017 08:00 Stage of : Antepartum Temperature Route: Oral Pain Assessment Pain Scale: 0 Pain Presence: None/Denies Pain Type: N/A Pain Goal: 3 Datetime: 09/09/2017 07:00 Labor Evaluation Frequency: N/A Monitor Mode: External Resting Tone Pavo: Relaxed Datetime: 09/09/2017 06:00 Labor Evaluation Frequency: N/A Monitor Mode: External Resting Tone Pavo: Relaxed Datetime: 09/09/2017 05:10 Temperature Route: Oral Pain Assessment Pain Scale: 0 Pain Presence: None/Denies Pain Type: N/A Pain Goal: 3 Datetime: 09/09/2017 05:00 Labor Evaluation Frequency: N/A Monitor Mode: External Resting Tone Pavo: Relaxed Datetime: 09/09/2017 04:00 Labor Evaluation Frequency: N/A Monitor Mode: External Resting Tone Pavo: Relaxed Datetime: 09/09/2017 03:00 Labor Evaluation Frequency: N/A Monitor Mode: External Resting Tone Pavo: Relaxed Datetime: 09/09/2017 02:01 Labor Evaluation Frequency: N/A Monitor Mode: External Resting Tone Pavo: Relaxed Datetime: 09/09/2017 01:28 Heart Rate FHR Baseline Rate: 145 Monitor Mode: External US FHR Baseline Changes: No Baseline Change Variability: Moderate 6-25 bpm Decelerations: None Category: Category I Comments: NST q shift Datetime: 09/09/2017 01:11 Comments: NST started Datetime: 09/09/2017 01:00 Labor Evaluation Frequency: N/A Monitor Mode: External Resting Tone Pavo: Relaxed Datetime: 09/09/2017 00:00 Labor Evaluation Frequency: N/A Monitor Mode: External Resting Tone Pavo: Relaxed Datetime: 09/08/2017 23:55 Temperature Route: Oral Pain Assessment Pain Scale: 0 Pain Presence: None/Denies Pain Type: N/A Pain Goal: 3 Datetime: 09/08/2017 23:00 Labor Evaluation Frequency: N/A Monitor Mode: External Resting Tone Pavo: Relaxed Datetime: 09/08/2017 22:26 Assessment Type: Ongoing Assessment Maternal Assessment Level of Consciousness: Fully Conscious DTR's/Clonus: DTRs 2+; No Clonus Headache: Denies Blurred Vision: No Respiratory Effort: Unlabored; Regular Rhythm; Equal Expansion Breath Sounds, Left: Clear and Equal Breath Sounds, Right: Clear and Equal Nausea/Vomiting: Denies RUQ Epigastric Pain: Denies Lower Extremities Edema: None Degree: None Upper Extremities Edema: None Degree: None Facial Edema: None Fall Risk Assessment History of Falling: (0) No Secondary Diagnosis: (0) No Ambulatory Aid: (0) Bedrest/Nurse Assist IV Therapy: (20) Yes Gait: (0) Normal/Bedrest/Immobile Mental Status: (0) Oriented to Own Ability Fall Score: 20 Fall Risk Score Definition: No Risk: No action required Datetime: 09/08/2017 22:00 Labor Evaluation Frequency: N/A Monitor Mode: External Resting Tone Pavo: Relaxed Datetime: 09/08/2017 21:00 Labor Evaluation Frequency: 0 Monitor Mode: External Datetime: 09/08/2017 20:54 Monitor Mode: External US Comments: FHR 130-146 Datetime: 09/08/2017 20:50 Temperature Route: Oral Pain Assessment Pain Scale: 0 Pain Goal: 3 Datetime: 09/08/2017 20:00 Labor Evaluation Frequency: 0 Monitor Mode: External Datetime: 09/08/2017 17:59 Labor Evaluation Frequency: 0 Monitor Mode: External Pattern: Normal: <= 5 Contractions in 10 Minutes Resting Tone Pavo: Relaxed Pain Presence: None/Denies Datetime: 09/08/2017 16:58 Labor Evaluation Frequency: 0 Monitor Mode: External Pattern: Normal: <= 5 Contractions in 10 Minutes Resting Tone Pavo: Relaxed Pain Presence: None/Denies Datetime: 09/08/2017 16:03 Labor Evaluation Frequency: X3 Monitor Mode: External Duration (sec)2399: 50-70 Pattern: Normal: <= 5 Contractions in 10 Minutes Resting Tone Pavo: Relaxed Contraction Comments: PT. DENIES FEELING UC'S Pain Presence: None/Denies Datetime: 09/08/2017 15:04 Labor Evaluation Frequency: 0 Monitor Mode: External Pattern: Normal: <= 5 Contractions in 10 Minutes Resting Tone Pavo: Relaxed Datetime: 09/08/2017 13:54 Labor Evaluation Frequency: 0 Monitor Mode: External Pattern: Normal: <= 5 Contractions in 10 Minutes Resting Tone Pavo: Relaxed Datetime: 09/08/2017 13:50 Pain Assessment Pain Scale: 5 Pain Presence: Intermittent Pain Type: Ache Pain Location: Right Flank Pain Relief Measures: Pain Medication Given Pain Assessment Comments: PT. REQUESTING IV TYLENOL Datetime: 09/08/2017 13:00 Labor Evaluation Frequency: 0 Monitor Mode: External Pattern: Normal: <= 5 Contractions in 10 Minutes Resting Tone Pavo: Relaxed Datetime: 09/08/2017 11:56 Labor Evaluation Frequency: 0 Monitor Mode: External Pattern: Normal: <= 5 Contractions in 10 Minutes Resting Tone Pavo: Relaxed Pain Assessment Pain Scale: 2 Pain Presence: Intermittent Pain Type: Ache Pain Location: Right Flank Pain Relief Measures: Comfort Measures Datetime: 09/08/2017 11:01 Labor Evaluation Frequency: 0 Monitor Mode: External Pattern: Normal: <= 5 Contractions in 10 Minutes Resting Tone Pavo: Relaxed Pain Assessment Pain Scale: 3 Pain Presence: Intermittent Pain Type: Ache Pain Location: Right Flank Pain Relief Measures: Comfort Measures Datetime: 09/08/2017 09:58 Labor Evaluation Frequency: 0 Monitor Mode: External Pattern: Normal: <= 5 Contractions in 10 Minutes Resting Tone Pavo: Relaxed Datetime: 09/08/2017 08:52 Labor Evaluation Frequency: 0 Monitor Mode: External Pattern: Normal: <= 5 Contractions in 10 Minutes Resting Tone Pavo: Relaxed Datetime: 09/08/2017 08:20 Labor Evaluation Frequency: 0 Monitor Mode: External Pattern: Normal: <= 5 Contractions in 10 Minutes Resting Tone Pavo: Relaxed Heart Rate FHR Baseline Rate: 140 Monitor Mode: External US Variability: Moderate 6-25 bpm Accelerations: 10X10 Decelerations: None Category: Category I Comments: NST REACTIVE FOR GESTATIONAL AGE Datetime: 09/08/2017 07:57 Labor Evaluation Frequency: 0 Monitor Mode: External Pattern: Normal: <= 5 Contractions in 10 Minutes Resting Tone Pavo: Relaxed Heart Rate FHR Baseline Rate: 140 Comments: NST STARTED Pain Assessment Pain Scale: 3 Pain Presence: Intermittent Pain Type: Ache Pain Location: Right Flank Pain Relief Measures: Comfort Measures Datetime: 09/08/2017 07:54 Assessment Type: Ongoing Assessment Maternal Assessment Level of Consciousness: Fully Conscious DTR's/Clonus: DTRs 2+; No Clonus Headache: Denies Blurred Vision: No Respiratory Effort: Unlabored; Regular Rhythm; Equal Expansion Breath Sounds, Left: Clear and Equal Breath Sounds, Right: Clear and Equal Nausea/Vomiting: Denies RUQ Epigastric Pain: Denies Lower Extremities Edema: None Degree: None Upper Extremities Edema: None Degree: None Facial Edema: None Fall Risk Assessment History of Falling: (0) No Secondary Diagnosis: (0) No Ambulatory Aid: (0) Bedrest/Nurse Assist IV Therapy: (20) Yes Gait: (0) Normal/Bedrest/Immobile Mental Status: (0) Oriented to Own Ability Fall Score: 20 Fall Risk Score Definition: No Risk: No action required Datetime: 09/08/2017 07:15 Stage of : Report off to Fareeda RN Datetime: 09/08/2017 06:55 Labor Evaluation Frequency: 0 Monitor Mode: External Resting Tone Pavo: Relaxed Datetime: 09/08/2017 06:50 Stage of : Antepartum Pain Assessment Pain Scale: 0 Pain Presence: None/Denies Datetime: 09/08/2017 06:00 Labor Evaluation Frequency: 0 Monitor Mode: External Resting Tone Pavo: Relaxed Datetime: 09/08/2017 05:00 Labor Evaluation Frequency: 0 Monitor Mode: External Resting Tone Pavo: Relaxed Datetime: 09/08/2017 04:23 Assessment Type: Admission Assessment Vaginal Bleeding: None Maternal Assessment Level of Consciousness: Fully Conscious DTR's/Clonus: DTRs 2+ Headache: Denies Blurred Vision: No Respiratory Effort: Unlabored Breath Sounds, Left: Clear and Equal Breath Sounds, Right: Clear and Equal Nausea/Vomiting: Denies RUQ Epigastric Pain: Denies Lower Extremities Edema: None Degree: None Upper Extremities Edema: None Degree: None Facial Edema: None Fall Risk Assessment History of Falling: (0) No Secondary Diagnosis: (0) No Ambulatory Aid: (0) Bedrest/Nurse Assist IV Therapy: (0) No Gait: (0) Normal/Bedrest/Immobile Mental Status: (0) Oriented to Own Ability Fall Score: 0 Fall Risk Score Definition: No Risk: No action required Labor Evaluation Frequency: denies Pain Assessment Pain Scale: 10 Pain Presence: Intermittent Pain Type: Sharp Pain Location: Abdomen; Back Membrane Status: Intact Datetime: 09/08/2017 03:20 Stage of : OB Triage Datetime: 09/08/2017 02:55 Stage of : OB Triage Monitor Mode: External Resting Tone Pavo: Relaxed Contraction Comments: unable to palpate ucs Heart Rate FHR Baseline Rate: 135 Monitor Mode: External US Pain Assessment Pain Scale: 10 Pain Presence: Intermittent Pain Location: Abdomen; Back Presentation 'A': Breech Datetime: 09/08/2017 02:02 Pain Location: Abdomen; Back (Annotations: lower back. Denies flank pain) Datetime: 09/08/2017 01:45 EGA: 27.0
== END 2017-10-26 18:01 | disposition home or self-care (01) ==
LOC: L-D 12:10 → OBT 12:10
PROVIDERS: ATTEND Obstetrics & Gynecology
DX: O62.9 Abnormality of forces of labor, unspecified (principal); O99.513 Diseases of the respiratory system complicating pregnancy, third trimester; R05 Cough; Z3A.33 33 weeks gestation of pregnancy
CPT/HCPCS: 76817; 81003; 85025; 87086; Z7500; G0463

== ENCOUNTER 2017-11-22 13:45 | Outpatient (CLI) | END 2017-11-22 15:45 | disposition home or self-care (01) ==

== ENCOUNTER 2017-12-01 12:01 | Inpatient (IN) | END 2017-12-04 18:51 | disposition home or self-care (01) | DRG 766 ==

== ENCOUNTER 2018-02-27 07:45 | Emergency (ER) | END 2018-02-27 12:14 | disposition home or self-care (01) ==

== ENCOUNTER 2018-09-30 20:20 | Emergency (ER) | END 2018-09-30 23:07 | disposition home or self-care (01) ==

== ENCOUNTER 2019-02-26 08:42 | Emergency (ER) | payer OTHER ==
[~2019-02-26] VITALS: Ht 162.6 cm; Wt 75.7 kg
[~2019-02-26 08:42] MED LIST changes: +ACET500C5 PO; -ACET650S9 PR; -ALBU18HF INHALATION; +FAMO-96 PO; -GUAI-637 PO; -IBUP-1542 PO; +IBUP-1544 PO; +NAPR-985 PO; +NITR-58 PO; -OSLT75C PO; +PHEN-538 PO; +SULF1TAB31 PO; -TYL500 PO
[2019-02-26 08:49] VITALS: BP 117/58; PULSE 78; RESP 18; Ht 162.6 cm; Wt 75.7 kg
[2019-02-26] MEDS ORDERED: KETOROLAC 60 MG INJ IM STA (09:07)
[2019-02-26] MEDS ORDERED: DIAZEPAM 5 MG TAB PO ONE (09:30)
[2019-02-26] MEDS ORDERED: DEXAMETHASONE 10 MG/ML 1 ML INJ IM ONE (09:30)
[2019-02-26] MEDS ORDERED: MED4DP PO (10:47)
[2019-02-26] MEDS ORDERED: HYDR-4011 PO (10:47)
[2019-02-26] MEDS ORDERED: NAPR-985 PO (10:47)
[2019-02-26] MEDS ORDERED: CYCL10TA7 PO (10:47)
--- NOTE | 2019-02-26 13:08 | ERD ---
ER Documentation Chief Complaint Chief Complaint back pain x 2 weeks HPI 28-year-old female presenting with back pain for the last 2 weeks. Patient states that she has pain with movement. The pain started 13 months ago she had a and epidural. Patient denies any changes in urination or bowel movement. She denies any weakness to her legs but feels some numbness occasionally. Denies any saddle anesthesia. Denies medical problems. Allergic to penicillin. Surgical history denies. Social history denies ROS All systems reviewed and are negative except as per history of present illness. Medications Home Meds Active Scripts Methylprednisolone* (Medrol* DOSE PACK) 4 Mg/Dose-Pack Tab.ds.pk, 4 MG PO . DIRECTED, #1 PACKET Prov:DORIS CLAUDIO PA-C 02/26/19 Naproxen* (Naprosyn*) 500 Mg Tablet, 500 MG PO BID PRN for PAIN AND/OR INFLAMMATION, #30 TAB Prov:DORIS CLAUDIO PA-C 02/26/19 Cyclobenzaprine Hcl* (Cyclobenzaprine Hcl*) 10 Mg Tablet, 10 MG PO TID, #15 TAB Prov:DORIS CLAUDIO PA-C 02/26/19 Hydrocodone/Acetaminophen ([place] 5-325 Tablet) 1 Each Tablet, 1 TAB PO Q6H PRN for PAIN, #7 TAB Prov:DORIS CLAUDIO PA-C 02/26/19 Famotidine* (Pepcid*) 20 Mg Tablet, 20 MG PO BID for 4 Days, TAB Prov:GILBERTO PALOMO PA-C 09/30/18 Phenazopyridine Hcl* (Pyridium*) 200 Mg Tab, 200 MG PO TID PRN for URINARY PAIN, #6 TAB Prov:GILBERTO PALOMO PA-C 09/30/18 Sulfamethoxazole/Trimethoprim* (Bactrim Ds* Tablet) 1 Each Tablet, 1 TAB PO BID, #14 TAB Prov:GILBERTO PALOMO PA-C 09/30/18 Nitrofurantoin Monohyd Macrocr* (Macrobid*) 100 Mg Capsr, 100 MG PO BID for 7 Days, CAP Prov:BARB BHATT PA-C 02/27/18 Acetaminophen* (Tylophen*) 500 Mg Capsule, 1 CAP PO Q6H PRN for PAIN AND OR ELEVATED TEMP, #30 CAP Prov:BARB BHATT PA-C 02/27/18 Naproxen* (Naprosyn*) 500 Mg Tablet, 500 MG PO BID PRN for PAIN AND/OR IN FLAMMATION, #30 TAB Prov:BARB BHATT PA-C 02/27/18 Ibuprofen* (Ibuprofen*) 800 Mg Tablet, 800 MG PO Q8, #60 TAB 0 Refills Prov:OCTAVIO OSBORNE MD 12/03/17 Reported Medications Vit #76/Iron,Carb/FA (Prenatabs Rx Tablet) 1 Each Tablet, 1 EACH PO DAILY, TAB 09/08/17 Allergies Allergies: Coded Allergies: Penicillins (Verified Allergy, Intermediate, 09/30/18) PMhx/Soc History of Surgery: Yes () Anesthesia Reaction: No Hx Neurological Disorder: No Hx Respiratory Disorders: Yes (bronchitis) Hx Cardiac Disorders: No Hx Psychiatric Problems: No Hx Miscellaneous Medical Probl: No Hx Alcohol Use: No Hx Substance Use: No Hx Tobacco Use: No FmHx Family History: No diabetes, No coronary disease, No other Physical Exam Vitals Vital Signs Date Temp Pulse Resp B/P (MAP) Pulse Ox O2 O2 Flow FiO2 Time Delivery Rate 02/26/19 97.5 78 18 117/58 100 08:49 (77) Physical Exam GENERAL: The patient is well-appearing, well-nourished, in no acute distress CHEST: Clear to auscultation bilaterally. There are no rales, wheezes or rhonchi. HEART: Regular rate and rhythm. No murmurs, clicks, rubs or gallops. No S3 or S4. ABDOMEN:Soft, nontender and nondistended. Good bowel sounds. No rebound or guarding. No gross peritonitis. No gross organomegaly or masses. BACK: No midline or flank tenderness. EXTREMITIES: Equal pulses bilaterally. There is no peripheral clubbing, cyanosis or edema. No focal swelling or erythema. Full range of motion. Grossly neurovascularly intact. NEUROLOGIC: Alert and oriented. Cranial nerves II through XII intact. Motor strength in all 4 extremities with 5 out of 5 strength. Sensation grossly intact. Normal speech and gait. Babinski negative. DTR 2+ throughout. SKIN: There is no apparent rash or petechiae. The skin is warm and dry. HEMATOLOGIC AND LYMPHATIC: There is no evidence of excessive bruising or lymphadenopathy. Results 24 hrs Laboratory Tests Test 02/26/19 09:14 02/26/19 09:16 POC Beta HCG, Qualitative NEGATIVE Bedside Urine pH (LAB) 6.0 Bedside Urine Protein (LAB) Negative Bedside Urine Glucose (UA) Negative Bedside Urine Ketones (LAB) Negative Bedside Urine Blood Trace-lysed Bedside Urine Nitrite (LAB) Positive Bedside Urine Leukocyte Esterase (L Trace Current Medications Medications Dose Sig/Connie Start Time Status Last (Trade) Ordered Route PRN Stop Time Admin Dose Reason Admin Diazepam 5 mg ONCE ONCE 02/26/19 DC 02/26/19 (Valium) PO 09:30 09:14 02/26/19 09:31 10 mg ONCE ONCE 02/26/19 DC 02/26/19 Dexamethasone IM 09:30 09:15 (Decadron) 02/26/19 09:31 Ketorolac 60 mg ONCE STAT 02/26/19 DC 02/26/19 Tromethamine IM 09:07 09:15 (Toradol) 02/26/19 09:09 Procedures/MDM DIAGNOSTIC IMAGING REPORT Patient: PRIYANKA CROCKER : 1990 Age: 28 Sex: F MR #: [id number] DOS: 02/26/19 0907 Ordering MD: YOBANI CLAUDIO PA-C Location: [facility] Room/Bed: PROCEDURE: CT Lumbar Spine. CLINICAL INDICATION: Pain TECHNIQUE: Axial imaging was obtained through the lumbar spine using a multi- slice CT scanner. Standard CT scan of the lumbar spine without contrast protocols were performed. CTDI: 20.7 and DLP: 537.2. One or more of the following dose reduction techniques were used: - Automated exposure control. - Adjustment of the mA and/or kV according to patient size. Use of iterative reconstruction technique. Dicom images are available COMPARISON: None. FINDINGS: No evidence of acute fractures or subluxations. The bony mineralization is normal. There are no focal bony blastic or lytic lesions. Posterior elements are intact. T12-L1 disc level: Disc space maintains normal heights without disc herniation central spinal canal stenosis or neural foraminal narrowing. Facet joints are unremarkable. L1-2 disc level: Disc space maintains a heights without disc herniation central spinal canal stenosis or neural foraminal narrowing. Facet joints. L2-3 disc level: Disc space maintains normal heights without disc herniation central spinal canal stenosis or neural foraminal narrowing. Facet joints are unremarkable. L3-4 disc level: Disc space maintains normal heights without evidence of disc herniation central spinal canal stenosis or neural foraminal narrowing. Facet joints are unremarkable. L4-5 disc level: Disc space maintains normal heights. Mild posterior broad- based disc bulge without disc herniation central spinal canal stenosis or neural foraminal narrowing. Facet joints are unremarkable. L5-S1 disc level: Disc space maintains normal heights. Mild right paracentral disc protrusion extending posteriorly by approximately 3.5 mm impressing adjacent thecal sac but not compressing the traversing S1 nerve roots and no central spinal canal stenosis or neural foraminal narrowing. Facet joints are unremarkable. IMPRESSION: 1. No evidence of fractures subluxations or stenosis. 2. At the L5-S1 disc level there is a mild right paracentral disc protrusion extending posteriorly by approximately 3.5 mm without compression of the traversing S1 nerve root. 3. At the L4-5 disc level mild posterior broad-based disc bulge but no herniation. ER Course: Valium, Decadron and Toradol given ED. MDM: 28-year-old female presenting with back pain extending down her legs. I have low suspicion for discitis or epidural abscess. I have low suspicion for cauda equina. Patient has a urinalysis findings of urinary tract infection however was discharged prior to prescription of antibiotics was given. Patient was contacted and prescription was called in for patient. I have low suspicion for pyelonephritis. I have low suspicion for acute abdominal emergency. Patient is discharged with supportive medications. Patient is told if symptoms change or worsen to return immediately to the ER. All questions answered at discharge Departure Diagnosis: Primary Impression: Back pain Condition: Stable Patient Instructions: Back Pain (Acute Or Chronic) Referrals: COMM[facility]ITY CLINICS YOU HAVE RECEIVED A MEDICAL SCREENING EXAM AND THE RESULTS INDICATE THAT YOU DO NOT HAVE A CONDITION THAT REQUIRES URGENT TREATMENT IN THE EMERGENCY DEPARTMENT. FURTHER EVALUATION AND TREATMENT OF YOUR CONDITION CAN WAIT UNTIL YOU ARE SEEN IN YOUR DOCTORS OFFICE WITHIN THE NEXT 1-2 DAYS. IT IS YOUR RESPONSIBILITY TO MAKE AN APPOINTMENT FOR FOLOW-UP CARE. IF YOU HAVE A PRIMARY DOCTOR --you should call your primary doctor and schedule an appointment IF YOU DO NOT HAVE A PRIMARY DOCTOR YOU CAN CALL OUR PHYSICIAN REFERRAL HOTLINE AT IF YOU CAN NOT AFFORD TO SEE A PHYSICIAN YOU CAN CHOSE FROM THE FOLLOWING [facility] [address] [facility] [address] [facility] [facility] [address] [facility] [address] [facility] [address] [facility]. [facility]. [address] Additional Instructions: FOLLOW UP WITH YOUR PRIMARY CARE PHYSICIAN TOMORROW.Return to this facility if you are not improving as expected. DORIS CLAUDIO PA-C Feb 26, 2019 13:08
== END 2019-02-26 11:05 | disposition home or self-care (01) ==
LOC: FTE 08:42
DX: M54.9 Dorsalgia, unspecified (principal)
CPT/HCPCS: 72131; 81003; 81025; 96372; J1100; J1885; Z7502; Z7610